=== PATIENT | male | born 1950 | race African-American/Black ===

== ENCOUNTER 2019-01-24 02:47 | Emergency (ER) | payer MEDICARE, OTHER ==
[~2019-01-24] VITALS: Ht 172.7 cm; Wt 77.3 kg
[2019-01-24] MEDS ORDERED: [UNRECOGNIZED DRUG - CODE] PO (03:37)
[2019-01-24] MEDS ORDERED: ASPI-556 PO (03:37)
[2019-01-24] MEDS ORDERED: CARV3.1231 PO (03:37)
[2019-01-24] MEDS ORDERED: HYDR100T28 PO (03:37)
[2019-01-24 04:15] LABS: BASOPHILS % (AUTO) 0.3 % (0.0-2.0); EOSINOPHILS % (AUTO) 0.6 % (1.0-6.0); HEMATOCRIT 30.1 % (41-53); HEMOGLOBIN 9.3 g/dL (13.5-17.5); LYMPHOCYTES # (AUTO) 0.8 K/uL (1.0-4.8); LYMPHOCYTES % (AUTO) 8.6 % (22.0-44.0); MEAN CORPUSCULAR HEMOGLOBIN 24.3 pg (26.0-34.0); MEAN CORPUSCULAR VOLUME 78 fL (80-100); MONOCYTES # (AUTO) 0.8 K/uL (0.1-1.0); MONOCYTES % (AUTO) 8.2 % (2.0-9.0); NEUTROPHILS % (AUTO) 82.3 % (40.0-70.0); PLATELET COUNT (AUTO) 337 K/uL (150-450); RED BLOOD CELL COUNT(AUTO) 3.84 MIL/uL (4.50-5.90); RED CELL DISTRIBUTION WIDTH 19.5 % (11.5-14.5)
[2019-01-24 04:24] LABS: CALCIUM, TOTAL 9.4 mg/dL (8.8-10.5); CREATININE 1.92 mg/dL (0.60-1.30); POTASSIUM 3.9 mmol/L (3.5-5.1)
[2019-01-24 04:30] LABS: ALBUMIN 3.7 g/dL (3.4-5.0); BILIRUBIN,TOTAL 1.3 mg/dL (0.1-1.0); TOTAL PROTEIN, SERUM 7.7 g/dL (6.4-8.2)
[2019-01-24 07:45] VITALS: BP 137/83
== END 2019-01-24 08:00 | disposition home or self-care (01) ==
LOC: EMS 02:47
DX: S00.03XA Contusion of scalp, initial encounter (principal); I25.2 Old myocardial infarction; N28.9 Disorder of kidney and ureter, unspecified; F17.210 Nicotine dependence, cigarettes, uncomplicated; Z59.0 Homelessness; Z79.82 Long term (current) use of aspirin; W01.0XXA Fall on same level from slipping, tripping and stumbling without subsequent striking against object, initial encounter; Y93.01 Activity, walking, marching and hiking; Y92.89 Other specified places as the place of occurrence of the external cause; Y99.8 Other external cause status
CPT/HCPCS: 70450; 99406

== ENCOUNTER 2020-01-12 10:22 | Emergency (ER) | payer MEDICARE, OTHER ==
[~2020-01-12] VITALS: Ht 152.4 cm; Wt 77.3 kg
[~2020-01-12 10:22] MED LIST: ASPI-556 PO; BUME0.5T5 PO; CARV3.1231 PO; HYDR100T28 PO
[2020-01-12 10:55] VITALS: BP 154/88
== END 2020-01-12 11:34 | disposition left against medical advice (07) ==
LOC: EMS 10:23
DX: R06.02 Shortness of breath (principal); F17.210 Nicotine dependence, cigarettes, uncomplicated; Z79.899 Other long term (current) drug therapy
CPT/HCPCS: 93005; 99406

== ENCOUNTER 2020-06-29 15:36 | Inpatient (IN) | payer MEDICARE, OTHER ==
[~2020-06-29] VITALS: Ht 175.3 cm; Wt 64.0 kg
[2020-06-29 15:40] VITALS: BP 155/95
[2020-06-29] MEDS ORDERED: ALBUTEROL SULFATE HFA 90 MCG/PUFF 8 GM INHALER IH PRN (17:45)
[2020-06-29 20:10] VITALS: BP 158/93
[2020-06-29] MEDS: ATORVASTATIN CALCIUM 40 MG TABLET PO SCH (20:10)
[2020-06-29] MEDS: METOPROLOL TARTRATE 25 MG TABLET PO SCH (20:10)
[2020-06-29] MEDS ORDERED: DOCUSATE SODIUM 100 MG/10 ML LIQUID UDCUP PO SCH (21:00)
[2020-06-29] MEDS ORDERED: SENNA 187 MG TABLET PO SCH (21:00)
[2020-06-29] MEDS: SENNA 187 MG TABLET PO SCH (21:00)
[2020-06-29] MEDS: DOCUSATE SODIUM 250 MG CAPSULE PO SCH (21:20)
[2020-06-29] MEDS: HEPARIN SODIUM,PORCINE 5,000 UNITS/ML VIAL SQ SCH (22:58)
[2020-06-29 23:33] VITALS: BP 144/87
[2020-06-30 07:30] VITALS: BP 138/70
[2020-06-30 09:10] LABS: BASOPHILS % (AUTO) 0.7 % (0.0-2.0); EOSINOPHILS % (AUTO) 4.1 % (1.0-6.0); HEMATOCRIT 29.6 % (41-53); HEMOGLOBIN 9.3 g/dL (13.5-17.5); LYMPHOCYTES # (AUTO) 0.8 K/uL (1.0-4.8); LYMPHOCYTES % (AUTO) 15.3 % (22.0-44.0); MEAN CORPUSCULAR HEMOGLOBIN 23.9 pg (26.0-34.0); MEAN CORPUSCULAR HGB CONC 31.3 G/dL (31.0-37.0); MEAN CORPUSCULAR VOLUME 76 fL (80-100); MONOCYTES # (AUTO) 0.6 K/uL (0.1-1.0); MONOCYTES % (AUTO) 11.1 % (2.0-9.0); NEUTROPHILS # (AUTO) 3.8 K/uL (1.8-7.7); NEUTROPHILS % (AUTO) 68.8 % (40.0-70.0); PLATELET COUNT (AUTO) 351 K/uL (150-450); RED BLOOD CELL COUNT(AUTO) 3.88 MIL/uL (4.50-5.90); RED CELL DISTRIBUTION WIDTH 21.6 % (11.5-14.5)
[2020-06-30] MEDS: METOPROLOL TARTRATE 25 MG TABLET PO SCH ×2 (09:20→20:22)
[2020-06-30] MEDS: DOCUSATE SODIUM 250 MG CAPSULE PO SCH ×2 (09:20→20:25)
[2020-06-30] MEDS: NICOTINE 21 MG/24 HOUR PATCH TD SCH (09:20)
[2020-06-30] MEDS: ASPIRIN 81 MG CHEWABLE TABLET PO SCH (09:20)
[2020-06-30] MEDS: HEPARIN SODIUM,PORCINE 5,000 UNITS/ML VIAL SQ SCH ×3 (09:21→23:16)
[2020-06-30 09:24] LABS: ALBUMIN 3.1 g/dL (3.4-5.0); BILIRUBIN,TOTAL 0.8 mg/dL (0.1-1.0); CALCIUM, TOTAL 8.6 mg/dL (8.8-10.5); CREATININE 1.98 mg/dL (0.60-1.30); POTASSIUM 4.3 mmol/L (3.5-5.1); TOTAL PROTEIN, SERUM 6.8 g/dL (6.4-8.2)
[2020-06-30] MEDS ORDERED: BUME1TAB34 PO (11:54)
[2020-06-30] MEDS ORDERED: ASPI-1111 GT (11:54)
[2020-06-30] MEDS: MODAFINIL 100 MG TABLET PO SCH (13:20)
[2020-06-30 17:52] VITALS: BP 152/100
[2020-06-30] MEDS: ATORVASTATIN CALCIUM 40 MG TABLET PO SCH (20:22)
[2020-06-30] MEDS: SENNA 187 MG TABLET PO SCH (20:22)
[2020-06-30 20:30] VITALS: BP 162/97
[2020-07-01] VITALS (8 sets, daily range): BP systolic 125–158; BP diastolic 84–115
[2020-07-01] MEDS: ASPIRIN 81 MG CHEWABLE TABLET PO SCH (08:43)
[2020-07-01] MEDS: DOCUSATE SODIUM 250 MG CAPSULE PO SCH ×2 (08:43→20:03)
[2020-07-01] MEDS: MODAFINIL 100 MG TABLET PO SCH (08:43)
[2020-07-01] MEDS: METOPROLOL TARTRATE 25 MG TABLET PO SCH (08:43)
[2020-07-01] MEDS: HEPARIN SODIUM,PORCINE 5,000 UNITS/ML VIAL SQ SCH ×2 (08:43→16:42)
[2020-07-01] MEDS: NICOTINE 21 MG/24 HOUR PATCH TD SCH (08:47)
[2020-07-01] MEDS ORDERED: MODAFINIL 100 MG TABLET PO SCH (09:00)
[2020-07-01 11:16] LABS: BASOPHILS % (AUTO) 1.1 % (0.0-2.0); EOSINOPHILS % (AUTO) 3.6 % (1.0-6.0); HEMATOCRIT 30.4 % (41-53); HEMOGLOBIN 9.5 g/dL (13.5-17.5); LYMPHOCYTES # (AUTO) 0.8 K/uL (1.0-4.8); LYMPHOCYTES % (AUTO) 16.1 % (22.0-44.0); MEAN CORPUSCULAR HEMOGLOBIN 23.7 pg (26.0-34.0); MEAN CORPUSCULAR HGB CONC 31.3 G/dL (31.0-37.0); MEAN CORPUSCULAR VOLUME 76 fL (80-100); MONOCYTES # (AUTO) 0.7 K/uL (0.1-1.0); MONOCYTES % (AUTO) 13.5 % (2.0-9.0); NEUTROPHILS # (AUTO) 3.4 K/uL (1.8-7.7); NEUTROPHILS % (AUTO) 65.7 % (40.0-70.0); PLATELET COUNT (AUTO) 344 K/uL (150-450); RED BLOOD CELL COUNT(AUTO) 4.01 MIL/uL (4.50-5.90); RED CELL DISTRIBUTION WIDTH 21.3 % (11.5-14.5)
[2020-07-01] MEDS: NITROGLYCERIN 0.3 MG SUBLINGUAL TABLET #100 SL PRN ×3 (11:19→11:37)
[2020-07-01 11:25] LABS: CALCIUM, TOTAL 9.2 mg/dL (8.8-10.5); CREATININE 1.56 mg/dL (0.60-1.30); POTASSIUM 4.6 mmol/L (3.5-5.1)
[2020-07-01 11:53] LABS: ALBUMIN 3.1 g/dL (3.4-5.0); BILIRUBIN,TOTAL 0.7 mg/dL (0.1-1.0); TOTAL PROTEIN, SERUM 6.8 g/dL (6.4-8.2)
[2020-07-01] MEDS ORDERED: ISOSORBIDE MONONITRATE 60 MG ER TABLET PO ONE (13:30)
[2020-07-01] MEDS: AmLODIPine BESYLATE 2.5 MG TABLET PO SCH ×2 (13:30→20:02)
[2020-07-01] MEDS: METOPROLOL SUCCINATE 50 MG ER TABLET PO SCH (16:42)
[2020-07-01] MEDS: LACTULOSE 20 GM/30 ML SOLUTION UDCUP PO PRN (16:42)
[2020-07-01] MEDS ORDERED: ONDANSETRON HCL 4 MG TABLET PO PRN (19:00)
[2020-07-01] MEDS: ATORVASTATIN CALCIUM 40 MG TABLET PO SCH (20:02)
[2020-07-01] MEDS: SENNA 187 MG TABLET PO SCH (20:03)
[2020-07-02] MEDS: HEPARIN SODIUM,PORCINE 5,000 UNITS/ML VIAL SQ SCH ×4 (00:52→23:01)
[2020-07-02] MEDS: 0.9% SODIUM CHLORIDE 10 ML SYRINGE IVP SCH ×4 (00:54→23:01)
[2020-07-02 05:15] VITALS: BP 155/86
[2020-07-02 09:27] VITALS: BP 123/74
[2020-07-02] MEDS: AmLODIPine BESYLATE 2.5 MG TABLET PO SCH (09:33)
[2020-07-02] MEDS: ASPIRIN 81 MG CHEWABLE TABLET PO SCH (09:33)
[2020-07-02] MEDS: MODAFINIL 100 MG TABLET PO SCH (09:33)
[2020-07-02] MEDS: METOPROLOL SUCCINATE 50 MG ER TABLET PO SCH (09:33)
[2020-07-02] MEDS: ISOSORBIDE MONONITRATE 60 MG ER TABLET PO SCH (09:33)
[2020-07-02] MEDS: FAMOTIDINE 20 MG TABLET PO SCH (09:33)
[2020-07-02] MEDS: DOCUSATE SODIUM 250 MG CAPSULE PO SCH ×2 (09:34→21:00)
[2020-07-02] MEDS: NICOTINE 21 MG/24 HOUR PATCH TD SCH (09:36)
[2020-07-02 16:01] VITALS: BP 136/97
[2020-07-02] MEDS ORDERED: LISI-662 PO (16:33)
[2020-07-02] MEDS ORDERED: ATOR40TA28 GT (16:33)
[2020-07-02] MEDS ORDERED: ALBU8HFA IH (16:33)
[2020-07-02] MEDS: LACTULOSE 20 GM/30 ML SOLUTION UDCUP PO PRN (17:51)
[2020-07-02] MEDS: AmLODIPine BESYLATE 5 MG TABLET PO SCH (21:00)
[2020-07-02] MEDS: SENNA 187 MG TABLET PO SCH (21:00)
[2020-07-02] MEDS: ATORVASTATIN CALCIUM 40 MG TABLET PO SCH (21:00)
[2020-07-02 23:03] VITALS: BP 144/99
[2020-07-02] MEDS: ACETAMINOPHEN 325 MG TABLET PO PRN (23:03)
[2020-07-03 08:00] VITALS: BP 146/87
[2020-07-03] MEDS: 0.9% SODIUM CHLORIDE 10 ML SYRINGE IVP SCH ×2 (08:00→16:00)
[2020-07-03] MEDS: FAMOTIDINE 20 MG TABLET PO SCH (08:16)
[2020-07-03] MEDS: MODAFINIL 100 MG TABLET PO SCH (08:16)
[2020-07-03] MEDS: ASPIRIN 81 MG CHEWABLE TABLET PO SCH (08:16)
[2020-07-03] MEDS: HEPARIN SODIUM,PORCINE 5,000 UNITS/ML VIAL SQ SCH ×3 (08:16→23:35)
[2020-07-03] MEDS: METOPROLOL SUCCINATE 50 MG ER TABLET PO SCH (08:16)
[2020-07-03] MEDS: NICOTINE 21 MG/24 HOUR PATCH TD SCH (08:16)
[2020-07-03] MEDS: DOCUSATE SODIUM 250 MG CAPSULE PO SCH ×2 (08:16→20:01)
[2020-07-03] MEDS: AmLODIPine BESYLATE 5 MG TABLET PO SCH ×2 (08:16→20:01)
[2020-07-03] MEDS: ISOSORBIDE MONONITRATE 60 MG ER TABLET PO SCH (08:16)
[2020-07-03 15:30] VITALS: BP 139/78
[2020-07-03 19:53] VITALS: BP 162/94
[2020-07-03] MEDS: SENNA 187 MG TABLET PO SCH (20:01)
[2020-07-03] MEDS: ATORVASTATIN CALCIUM 40 MG TABLET PO SCH (20:01)
[2020-07-03 23:35] VITALS: BP 155/93
[2020-07-03] MEDS: ACETAMINOPHEN 325 MG TABLET PO PRN (23:35)
[2020-07-04 07:01] VITALS: BP 157/99
[2020-07-04] MEDS: ASPIRIN 81 MG CHEWABLE TABLET PO SCH (07:57)
[2020-07-04] MEDS: AmLODIPine BESYLATE 5 MG TABLET PO SCH ×2 (07:57→20:12)
[2020-07-04] MEDS: METOPROLOL SUCCINATE 50 MG ER TABLET PO SCH ×3 (07:57→20:12)
[2020-07-04] MEDS: DOCUSATE SODIUM 250 MG CAPSULE PO SCH ×2 (07:57→20:12)
[2020-07-04] MEDS: HEPARIN SODIUM,PORCINE 5,000 UNITS/ML VIAL SQ SCH ×2 (07:57→15:30)
[2020-07-04] MEDS: MODAFINIL 100 MG TABLET PO SCH (07:57)
[2020-07-04] MEDS: ISOSORBIDE MONONITRATE 60 MG ER TABLET PO SCH (07:57)
[2020-07-04] MEDS: FAMOTIDINE 20 MG TABLET PO SCH (07:57)
[2020-07-04] MEDS: NICOTINE 21 MG/24 HOUR PATCH TD SCH (07:57)
[2020-07-04 16:30] VITALS: BP 150/93
[2020-07-04 20:12] VITALS: BP 159/90
[2020-07-04] MEDS: SENNA 187 MG TABLET PO SCH (20:12)
[2020-07-04] MEDS: ATORVASTATIN CALCIUM 40 MG TABLET PO SCH (20:12)
[2020-07-04] MEDS: MELATONIN 5 MG TABLET PO PRN (21:55)
[2020-07-05] MEDS: HEPARIN SODIUM,PORCINE 5,000 UNITS/ML VIAL SQ SCH ×4 (00:09→21:32)
[2020-07-05 00:27] VITALS: BP 145/76
[2020-07-05 07:50] VITALS: BP 137/95
[2020-07-05] MEDS: MODAFINIL 100 MG TABLET PO SCH (08:14)
[2020-07-05] MEDS: AmLODIPine BESYLATE 5 MG TABLET PO SCH ×2 (08:14→21:31)
[2020-07-05] MEDS: ISOSORBIDE MONONITRATE 60 MG ER TABLET PO SCH (08:14)
[2020-07-05] MEDS: METOPROLOL SUCCINATE 50 MG ER TABLET PO SCH ×2 (08:14→21:31)
[2020-07-05] MEDS: ASPIRIN 81 MG CHEWABLE TABLET PO SCH (08:14)
[2020-07-05] MEDS: FAMOTIDINE 20 MG TABLET PO SCH (08:14)
[2020-07-05] MEDS: DOCUSATE SODIUM 250 MG CAPSULE PO SCH ×2 (08:14→21:31)
[2020-07-05] MEDS: NICOTINE 21 MG/24 HOUR PATCH TD SCH (08:16)
[2020-07-05] MEDS: 0.9% SODIUM CHLORIDE 10 ML SYRINGE IVP SCH ×2 (16:18→23:11)
[2020-07-05] MEDS: DEXTROSE 5%-0.45% SODIUM CHL 1,000 ML IV SCH (16:18)
[2020-07-05 18:48] VITALS: BP 134/94
[2020-07-05] MEDS: LACTULOSE 20 GM/30 ML SOLUTION UDCUP PO PRN (19:02)
[2020-07-05] MEDS: MELATONIN 5 MG TABLET PO PRN (21:31)
[2020-07-05] MEDS: ATORVASTATIN CALCIUM 40 MG TABLET PO SCH (21:31)
[2020-07-05] MEDS: SENNA 187 MG TABLET PO SCH (21:31)
[2020-07-05 23:28] VITALS: BP 138/89
[2020-07-06] MEDS: DEXTROSE 5%-0.45% SODIUM CHL 1,000 ML IV SCH ×3 (04:06→18:06)
[2020-07-06] MEDS: ASPIRIN 81 MG CHEWABLE TABLET PO SCH (09:46)
[2020-07-06] MEDS: FAMOTIDINE 20 MG TABLET PO SCH (09:46)
[2020-07-06] MEDS: 0.9% SODIUM CHLORIDE 10 ML SYRINGE IVP SCH ×3 (09:46→23:09)
[2020-07-06] MEDS: METOPROLOL SUCCINATE 50 MG ER TABLET PO SCH ×2 (09:46→21:11)
[2020-07-06] MEDS: ISOSORBIDE MONONITRATE 60 MG ER TABLET PO SCH (09:46)
[2020-07-06] MEDS: DOCUSATE SODIUM 250 MG CAPSULE PO SCH ×2 (09:46→21:11)
[2020-07-06] MEDS: MODAFINIL 100 MG TABLET PO SCH (09:46)
[2020-07-06] MEDS: HEPARIN SODIUM,PORCINE 5,000 UNITS/ML VIAL SQ SCH ×3 (09:47→21:11)
[2020-07-06] MEDS: NICOTINE 21 MG/24 HOUR PATCH TD SCH (09:47)
[2020-07-06] MEDS: AmLODIPine BESYLATE 5 MG TABLET PO SCH ×2 (09:47→21:11)
[2020-07-06 10:00] VITALS: BP 144/87
[2020-07-06 11:01] LABS: BASOPHILS % (AUTO) 0.7 % (0.0-2.0); EOSINOPHILS % (AUTO) 3.6 % (1.0-6.0); HEMATOCRIT 29.9 % (41-53); HEMOGLOBIN 9.3 g/dL (13.5-17.5); LYMPHOCYTES % (AUTO) 21.1 % (22.0-44.0); MEAN CORPUSCULAR HEMOGLOBIN 23.5 pg (26.0-34.0); MEAN CORPUSCULAR HGB CONC 31.2 G/dL (31.0-37.0); MEAN CORPUSCULAR VOLUME 75 fL (80-100); MONOCYTES # (AUTO) 0.4 K/uL (0.1-1.0); MONOCYTES % (AUTO) 8.7 % (2.0-9.0); NEUTROPHILS % (AUTO) 65.9 % (40.0-70.0); PLATELET COUNT (AUTO) 390 K/uL (150-450); RED BLOOD CELL COUNT(AUTO) 3.97 MIL/uL (4.50-5.90); RED CELL DISTRIBUTION WIDTH 21.1 % (11.5-14.5)
[2020-07-06 11:45] LABS: PLATELET MORPHOLOGY COMMENT LARGE PLTS PRESENT
[2020-07-06 11:49] LABS: ALBUMIN 3.3 g/dL (3.4-5.0); BILIRUBIN,TOTAL 0.6 mg/dL (0.1-1.0); CALCIUM, TOTAL 8.5 mg/dL (8.8-10.5); CREATININE 1.55 mg/dL (0.60-1.30); TOTAL PROTEIN, SERUM 7.1 g/dL (6.4-8.2)
[2020-07-06 15:59] VITALS: BP 141/76
[2020-07-06] MEDS: LACTULOSE 20 GM/30 ML SOLUTION UDCUP PO PRN (16:57)
[2020-07-06] MEDS: MELATONIN 5 MG TABLET PO PRN (21:11)
[2020-07-06] MEDS: ATORVASTATIN CALCIUM 40 MG TABLET PO SCH (21:11)
[2020-07-06] MEDS: SENNA 187 MG TABLET PO SCH (21:11)
[2020-07-07 00:02] VITALS: BP 139/87
[2020-07-07] MEDS: DEXTROSE 5%-0.45% SODIUM CHL 1,000 ML IV SCH ×2 (05:36→19:07)
[2020-07-07 08:30] VITALS: BP 134/75
[2020-07-07] MEDS: 0.9% SODIUM CHLORIDE 10 ML SYRINGE IVP SCH ×2 (08:48→16:56)
[2020-07-07] MEDS: DOCUSATE SODIUM 250 MG CAPSULE PO SCH ×2 (08:48→20:25)
[2020-07-07] MEDS: FAMOTIDINE 20 MG TABLET PO SCH (08:49)
[2020-07-07] MEDS: MODAFINIL 100 MG TABLET PO SCH (08:49)
[2020-07-07] MEDS: AmLODIPine BESYLATE 5 MG TABLET PO SCH ×2 (08:49→20:24)
[2020-07-07] MEDS: METOPROLOL SUCCINATE 50 MG ER TABLET PO SCH ×2 (08:49→20:24)
[2020-07-07] MEDS: ISOSORBIDE MONONITRATE 60 MG ER TABLET PO SCH (08:49)
[2020-07-07] MEDS: HEPARIN SODIUM,PORCINE 5,000 UNITS/ML VIAL SQ SCH ×3 (08:50→20:26)
[2020-07-07] MEDS: NICOTINE 21 MG/24 HOUR PATCH TD SCH (08:50)
[2020-07-07 15:30] VITALS: BP_SYST 113; BP_SYST 142; BP_DIAS 64; BP_DIAS 85
[2020-07-07] MEDS: MELATONIN 5 MG TABLET PO PRN (20:24)
[2020-07-07] MEDS: SENNA 187 MG TABLET PO SCH (20:25)
[2020-07-07] MEDS: ATORVASTATIN CALCIUM 40 MG TABLET PO SCH (20:25)
[2020-07-07 20:30] VITALS: BP 171/66
[2020-07-07] MEDS: LACTULOSE 20 GM/30 ML SOLUTION UDCUP PO PRN (21:53)
[2020-07-07 22:30] VITALS: BP 158/93
[2020-07-08 00:31] VITALS: BP 124/76
[2020-07-08] MEDS: DEXTROSE 5%-0.45% SODIUM CHL 1,000 ML IV SCH ×2 (06:06→19:31)
[2020-07-08 09:15] VITALS: BP 141/88
[2020-07-08] MEDS: 0.9% SODIUM CHLORIDE 10 ML SYRINGE IVP SCH ×3 (09:28→17:43)
[2020-07-08] MEDS: NICOTINE 21 MG/24 HOUR PATCH TD SCH (09:28)
[2020-07-08] MEDS: DOCUSATE SODIUM 250 MG CAPSULE PO SCH ×2 (09:29→21:12)
[2020-07-08] MEDS: ISOSORBIDE MONONITRATE 60 MG ER TABLET PO SCH (09:29)
[2020-07-08] MEDS: MODAFINIL 100 MG TABLET PO SCH (09:29)
[2020-07-08] MEDS: METOPROLOL SUCCINATE 50 MG ER TABLET PO SCH ×2 (09:29→21:12)
[2020-07-08] MEDS: FAMOTIDINE 20 MG TABLET PO SCH (09:29)
[2020-07-08] MEDS: AmLODIPine BESYLATE 5 MG TABLET PO SCH ×2 (09:29→21:12)
[2020-07-08] MEDS: HEPARIN SODIUM,PORCINE 5,000 UNITS/ML VIAL SQ SCH ×3 (09:29→22:05)
[2020-07-08 16:00] VITALS: BP 140/87
[2020-07-08 21:01] VITALS: BP 151/74
[2020-07-08] MEDS: LACTULOSE 20 GM/30 ML SOLUTION UDCUP PO PRN (21:12)
[2020-07-08] MEDS: SENNA 187 MG TABLET PO SCH (21:12)
[2020-07-08] MEDS: ATORVASTATIN CALCIUM 40 MG TABLET PO SCH (21:12)
[2020-07-08] MEDS: MELATONIN 5 MG TABLET PO PRN (21:12)
[2020-07-09 00:45] LABS: COVID AG,FIA SOURCE NASAL SWAB
[2020-07-09 03:12] VITALS: BP 157/89
[2020-07-09] MEDS: DEXTROSE 5%-0.45% SODIUM CHL 1,000 ML IV SCH (06:04)
[2020-07-09] MEDS: 0.9% SODIUM CHLORIDE 10 ML SYRINGE IVP SCH ×3 (08:00→15:51)
[2020-07-09] MEDS: HEPARIN SODIUM,PORCINE 5,000 UNITS/ML VIAL SQ SCH ×3 (09:00→21:26)
[2020-07-09] MEDS ORDERED: SODIUM CHLORIDE 0.9% 1,000 ML ONE (09:16)
[2020-07-09 09:30] VITALS: BP 149/88
[2020-07-09 11:45] VITALS: BP 155/89
[2020-07-09] MEDS: DOCUSATE SODIUM 250 MG CAPSULE PO SCH (11:48)
[2020-07-09] MEDS: FAMOTIDINE 20 MG TABLET PO SCH (11:48)
[2020-07-09] MEDS: METOPROLOL SUCCINATE 50 MG ER TABLET PO SCH (11:49)
[2020-07-09] MEDS: ISOSORBIDE MONONITRATE 60 MG ER TABLET PO SCH (11:49)
[2020-07-09] MEDS: MODAFINIL 100 MG TABLET PO SCH (11:49)
[2020-07-09] MEDS: AmLODIPine BESYLATE 5 MG TABLET PO SCH (11:49)
[2020-07-09] MEDS: NICOTINE 21 MG/24 HOUR PATCH TD SCH (11:52)
[2020-07-09 15:00] VITALS: BP 143/78
[2020-07-09] MEDS ORDERED: INSULIN REGULAR, HUMAN 100 UNITS/ML SQ PRN (15:45)
[2020-07-09] MEDS ORDERED: DEXTROSE 50%-WATER 25 GM/50 ML SYRINGE IVP PRN (15:45)
[2020-07-09] MEDS ORDERED: ONDANSETRON HCL 4 MG TABLET PEG PRN (19:50)
[2020-07-09] MEDS ORDERED: LACTULOSE 20 GM/30 ML SOLUTION UDCUP PEG PRN (19:50)
[2020-07-09 21:15] VITALS: BP 143/85
[2020-07-09] MEDS: ATORVASTATIN CALCIUM 40 MG TABLET PEG SCH (21:25)
[2020-07-09] MEDS: METOPROLOL SUCCINATE 50 MG ER TABLET PEG SCH (21:25)
[2020-07-09] MEDS: AmLODIPine BESYLATE 5 MG TABLET PEG SCH (21:25)
[2020-07-09] MEDS: SENNA 187 MG TABLET PEG SCH (21:25)
[2020-07-09] MEDS: MELATONIN 5 MG TABLET PEG PRN (21:26)
[2020-07-09] MEDS: DOCUSATE SODIUM 100 MG/10 ML LIQUID UDCUP PEG SCH (21:27)
[2020-07-09 22:28] LABS: GLUCOMETER DEV NAME(LOC) 2WR.1C; GLUCOSE,POINT OF CARE 80 MG/DL (70-110)
[2020-07-10] VITALS (7 sets, daily range): BP systolic 128–160; BP diastolic 77–115
[2020-07-10] MEDS: 0.9% SODIUM CHLORIDE 10 ML SYRINGE IVP SCH ×4 (00:21→23:18)
[2020-07-10 01:46] LABS: GLUCOMETER DEV NAME(LOC) 2WR.2B; GLUCOSE,POINT OF CARE 95 MG/DL (70-110)
[2020-07-10] MEDS: ACETAMINOPHEN 325 MG TABLET PEG PRN (01:55)
[2020-07-10] MEDS ORDERED: PROPOFOL 1% 20 ML VIAL IVP ONE (05:47)
[2020-07-10] MEDS: NICOTINE 21 MG/24 HOUR PATCH TD SCH (07:56)
[2020-07-10] MEDS: MULTIVITAMINS WITH MINERALS, THERAPEUTIC 15 ML UDCUP PEG SCH (07:57)
[2020-07-10] MEDS: AmLODIPine BESYLATE 5 MG TABLET PEG SCH ×2 (07:57→20:06)
[2020-07-10] MEDS: FAMOTIDINE 20 MG TABLET PEG SCH (07:57)
[2020-07-10] MEDS: DOCUSATE SODIUM 100 MG/10 ML LIQUID UDCUP PEG SCH ×2 (07:57→20:05)
[2020-07-10] MEDS: METOPROLOL SUCCINATE 50 MG ER TABLET PEG SCH ×2 (07:57→20:05)
[2020-07-10] MEDS: MODAFINIL 100 MG TABLET PEG SCH (07:57)
[2020-07-10] MEDS: HEPARIN SODIUM,PORCINE 5,000 UNITS/ML VIAL SQ SCH ×3 (07:58→20:06)
[2020-07-10] MEDS: ISOSORBIDE MONONITRATE 60 MG ER TABLET PO SCH (09:00)
[2020-07-10] MEDS ORDERED: MULTIVITAMINS WITH MINERALS, THERAPEUTIC TABLET PO SCH (09:00)
[2020-07-10] MEDS: ASPIRIN 81 MG EC TABLET PO SCH (10:45)
[2020-07-10 14:43] LABS: GLUCOMETER DEV NAME(LOC) 2WR.2B; GLUCOSE,POINT OF CARE 86 MG/DL (70-110)
[2020-07-10] MEDS ORDERED: NICO-704 TD (18:57)
[2020-07-10] MEDS ORDERED: FAMO20 GT (18:57)
[2020-07-10] MEDS ORDERED: SENN8.6T20 PO (18:57)
[2020-07-10] MEDS ORDERED: MULT-248 GT (18:57)
[2020-07-10] MEDS ORDERED: DOCU250C14 GT (18:57)
[2020-07-10] MEDS ORDERED: AMLO-257 GT (18:57)
[2020-07-10] MEDS ORDERED: ISOS60TA4 GT (18:57)
[2020-07-10] MEDS ORDERED: MODA100T65 GT (18:57)
[2020-07-10] MEDS ORDERED: METO-558 GT (18:57)
[2020-07-10] MEDS: MELATONIN 5 MG TABLET PEG PRN (20:05)
[2020-07-10] MEDS: SENNA 187 MG TABLET PEG SCH (20:05)
[2020-07-10] MEDS: ATORVASTATIN CALCIUM 40 MG TABLET PEG SCH (20:05)
[2020-07-10 21:19] LABS: GLUCOMETER DEV NAME(LOC) 2WR.2B; GLUCOSE,POINT OF CARE 101 MG/DL (70-110)
[2020-07-11 05:22] LABS: GLUCOMETER DEV NAME(LOC) 2WR.1C; GLUCOSE,POINT OF CARE 102 MG/DL (70-110)
[2020-07-11 05:57] LABS: GLUCOMETER DEV NAME(LOC) 2WR.2B; GLUCOSE,POINT OF CARE 116 MG/DL (70-110)
[2020-07-11 07:05] VITALS: BP 151/94
[2020-07-11] MEDS: 0.9% SODIUM CHLORIDE 10 ML SYRINGE IVP SCH ×3 (08:45→23:21)
[2020-07-11] MEDS: DOCUSATE SODIUM 100 MG/10 ML LIQUID UDCUP PEG SCH ×2 (08:45→20:49)
[2020-07-11] MEDS: ISOSORBIDE MONONITRATE 60 MG ER TABLET PO SCH (08:46)
[2020-07-11] MEDS: METOPROLOL SUCCINATE 50 MG ER TABLET PEG SCH ×2 (08:46→20:47)
[2020-07-11] MEDS: MODAFINIL 100 MG TABLET PEG SCH (08:46)
[2020-07-11] MEDS: NICOTINE 21 MG/24 HOUR PATCH TD SCH (08:46)
[2020-07-11] MEDS: AmLODIPine BESYLATE 5 MG TABLET PEG SCH ×2 (08:46→20:48)
[2020-07-11] MEDS: ASPIRIN 81 MG EC TABLET PO SCH (08:46)
[2020-07-11] MEDS: MULTIVITAMINS WITH MINERALS, THERAPEUTIC 15 ML UDCUP PEG SCH (08:46)
[2020-07-11] MEDS: HEPARIN SODIUM,PORCINE 5,000 UNITS/ML VIAL SQ SCH ×3 (08:46→21:59)
[2020-07-11] MEDS: FAMOTIDINE 20 MG TABLET PEG SCH (08:46)
[2020-07-11 14:17] LABS: GLUCOMETER DEV NAME(LOC) 2WR.2B; GLUCOSE,POINT OF CARE 124 MG/DL (70-110)
[2020-07-11 15:38] VITALS: BP 143/88
[2020-07-11 18:48] LABS: GLUCOMETER DEV NAME(LOC) 2WR.1C; GLUCOSE,POINT OF CARE 114 MG/DL (70-110)
[2020-07-11 20:46] VITALS: BP 169/93
[2020-07-11] MEDS: MELATONIN 5 MG TABLET PEG PRN (20:47)
[2020-07-11] MEDS: SENNA 187 MG TABLET PEG SCH (20:47)
[2020-07-11] MEDS: ATORVASTATIN CALCIUM 40 MG TABLET PEG SCH (20:47)
[2020-07-11] MEDS ORDERED: CloNIDine HCL 0.1 MG TABLET PO SCH (21:00)
[2020-07-11 23:27] VITALS: BP 149/90
[2020-07-11 23:47] LABS: GLUCOMETER DEV NAME(LOC) 2WR.2B; GLUCOSE,POINT OF CARE 108 MG/DL (70-110)
[2020-07-12 07:30] VITALS: BP 150/92
[2020-07-12] MEDS: 0.9% SODIUM CHLORIDE 10 ML SYRINGE IVP SCH (08:00)
[2020-07-12] MEDS: ASPIRIN 81 MG EC TABLET PO SCH (08:47)
[2020-07-12] MEDS: ISOSORBIDE MONONITRATE 60 MG ER TABLET PO SCH (08:47)
[2020-07-12] MEDS: MODAFINIL 100 MG TABLET PEG SCH (08:47)
[2020-07-12] MEDS: FAMOTIDINE 20 MG TABLET PEG SCH (08:47)
[2020-07-12] MEDS: METOPROLOL SUCCINATE 50 MG ER TABLET PEG SCH ×2 (08:47→20:20)
[2020-07-12] MEDS: AmLODIPine BESYLATE 5 MG TABLET PEG SCH ×2 (08:47→20:20)
[2020-07-12] MEDS: MULTIVITAMINS WITH MINERALS, THERAPEUTIC 15 ML UDCUP PEG SCH (08:48)
[2020-07-12] MEDS: NICOTINE 21 MG/24 HOUR PATCH TD SCH (08:48)
[2020-07-12] MEDS: DOCUSATE SODIUM 100 MG/10 ML LIQUID UDCUP PEG SCH ×2 (08:48→20:32)
[2020-07-12] MEDS: HEPARIN SODIUM,PORCINE 5,000 UNITS/ML VIAL SQ SCH ×3 (08:49→20:20)
[2020-07-12] MEDS: ACETAMINOPHEN 325 MG TABLET PEG PRN (09:25)
[2020-07-12] MEDS ORDERED: METOCLOPRAMIDE HCL 10 MG/10 ML SOLUTION ORAL.SYG PEG PRN ×2 (12:00→12:15)
[2020-07-12 12:14] LABS: GLUCOMETER DEV NAME(LOC) 2WR.1C; GLUCOSE,POINT OF CARE 116 MG/DL (70-110)
[2020-07-12 15:40] LABS: GLUCOMETER DEV NAME(LOC) 2WR.2B; GLUCOSE,POINT OF CARE 96 MG/DL (70-110)
[2020-07-12 15:55] VITALS: BP 143/76
[2020-07-12] MEDS ORDERED: CLON0.2T PO (20:13)
[2020-07-12 20:18] VITALS: BP 136/65
[2020-07-12] MEDS: ATORVASTATIN CALCIUM 40 MG TABLET PEG SCH (20:20)
[2020-07-12] MEDS: SENNA 187 MG TABLET PEG SCH (20:20)
[2020-07-12] MEDS: MELATONIN 5 MG TABLET PEG PRN (20:20)
[2020-07-12] MEDS ORDERED: CloNIDine HCL 0.1 MG TABLET PEG SCH (21:00)
[2020-07-12] MEDS ORDERED: CloNIDine HCL 0.2 MG TABLET PEG SCH (21:00)
[2020-07-12 23:00] VITALS: BP 123/67
[2020-07-13 07:26] VITALS: BP 141/84
[2020-07-13] MEDS: ISOSORBIDE MONONITRATE 60 MG ER TABLET PO SCH (08:33)
[2020-07-13] MEDS: MODAFINIL 100 MG TABLET PEG SCH (08:33)
[2020-07-13] MEDS: DOCUSATE SODIUM 100 MG/10 ML LIQUID UDCUP PEG SCH (08:33)
[2020-07-13] MEDS: NICOTINE 21 MG/24 HOUR PATCH TD SCH (08:33)
[2020-07-13] MEDS: FAMOTIDINE 20 MG TABLET PEG SCH (08:33)
[2020-07-13] MEDS: METOPROLOL SUCCINATE 50 MG ER TABLET PEG SCH (08:33)
[2020-07-13] MEDS: ASPIRIN 81 MG EC TABLET PO SCH (08:33)
[2020-07-13] MEDS: AmLODIPine BESYLATE 5 MG TABLET PEG SCH (08:33)
[2020-07-13] MEDS: MULTIVITAMINS WITH MINERALS, THERAPEUTIC 15 ML UDCUP PEG SCH (08:33)
[2020-07-13] MEDS: HEPARIN SODIUM,PORCINE 5,000 UNITS/ML VIAL SQ SCH (08:34)
[2020-07-13] MEDS ORDERED: MULT-248 PEG (11:19)
[2020-07-13] MEDS ORDERED: MULT9LIQ7 PEG (11:34)
[2020-07-18] MEDS ORDERED: NICO-704 TD (14:39)
== END 2020-07-13 13:55 | disposition home health service (06) | DRG 56 ==
LOC: 2WR 15:36
PROVIDERS: ADMIT Physical Medicine & Rehabilitation; ATTEND Physical Medicine & Rehabilitation
PROC: 0DH68UZ Insertion of Feeding Device into Stomach, Via Natural or Artificial Opening Endoscopic (ICD-10-PCS; principal; 2020-07-09 10:00)
DX: I69.354 Hemiplegia and hemiparesis following cerebral infarction affecting left non-dominant side (principal); I63.9 Cerebral infarction, unspecified; I13.0 Hypertensive heart and chronic kidney disease with heart failure and stage 1 through stage 4 chronic kidney disease, or unspecified chronic kidney disease; I42.9 Cardiomyopathy, unspecified; R41.4 Neurologic neglect syndrome; I25.10 Atherosclerotic heart disease of native coronary artery without angina pectoris; I34.0 Nonrheumatic mitral (valve) insufficiency; E78.5 Hyperlipidemia, unspecified; R13.10 Dysphagia, unspecified; R47.1 Dysarthria and anarthria; H53.462 Homonymous bilateral field defects, left side; R29.700 NIHSS score 0; Z92.82 Status post administration of tPA (rtPA) in a different facility within the last 24 hours prior to admission to current facility; N18.30 Chronic kidney disease, stage 3 unspecified; F17.210 Nicotine dependence, cigarettes, uncomplicated; I48.91 Unspecified atrial fibrillation; Z95.5 Presence of coronary angioplasty implant and graft; I65.29 Occlusion and stenosis of unspecified carotid artery; K59.00 Constipation, unspecified; I50.9 Heart failure, unspecified; D64.9 Anemia, unspecified; Z20.828 Contact with and (suspected) exposure to other viral communicable diseases
CPT/HCPCS: 70450; 74018; 74230; 87081; 87426; 92507; 92508; 92523; 92526; 92610; 92611; 93005; 93970; 97112; 97163; 97167; 97530; 97535; 99366; J0690; J1644; J2704; J7030; Q0162; 36415-L1; 36415-TC; 71045-TC

== ENCOUNTER 2020-08-18 15:14 | Emergency (ER) | payer MEDICARE, OTHER ==
[~2020-08-18] VITALS: Ht 172.7 cm; Wt 65.9 kg
[~2020-08-18 15:14] MED LIST changes: +AMLO-257 GT; +ASPI-1111 GT; -ASPI-556 PO; +ATOR40TA28 GT; -BUME0.5T5 PO; -CARV3.1231 PO; +CLON0.2T PO; +DOCU250C14 GT; +FAMO20 GT; -HYDR100T28 PO; +ISOS60TA4 GT; +METO-558 GT; +MULT9LIQ7 PEG; +NICO-704 TD; +SENN8.6T20 PO
[2020-08-18] MEDS ORDERED: ACETAMINOPHEN 325 MG TABLET PO ONE (16:00)
[2020-08-18 16:41] VITALS: BP 163/95
== END 2020-08-18 18:02 | disposition home or self-care (01) ==
LOC: EMS 15:14
DX: S40.012A Contusion of left shoulder, initial encounter (principal); F03.90 Unspecified dementia, unspecified severity, without behavioral disturbance, psychotic disturbance, mood disturbance, and anxiety; R51.9 Headache, unspecified; I48.91 Unspecified atrial fibrillation; K21.9 Gastro-esophageal reflux disease without esophagitis; I11.0 Hypertensive heart disease with heart failure; I50.9 Heart failure, unspecified; I25.2 Old myocardial infarction; F17.210 Nicotine dependence, cigarettes, uncomplicated; Z86.73 Personal history of transient ischemic attack (TIA), and cerebral infarction without residual deficits; Z79.82 Long term (current) use of aspirin; W19.XXXA Unspecified fall, initial encounter; Y93.89 Activity, other specified; Y92.89 Other specified places as the place of occurrence of the external cause; Y99.8 Other external cause status
CPT/HCPCS: 70450; 72125